=== PATIENT | female | born 1955 | race American Indian/Alaskan Native ===

== ENCOUNTER 2018-06-15 09:45 | Emergency (ER) | payer MEDICARE ==
[2018-06-15 09:52] VITALS: BP 145/83
[2018-06-15] MEDS ORDERED: NORCO 5/325 PO ONE (11:45)
[2018-06-15] MEDS ORDERED: TORADOL IM ONE (11:45)
[2018-06-15] MEDS ORDERED: FLEXERIL PO ONE (11:48)
--- NOTE | 2018-06-15 12:04 | Emergency Department Report ---
HPI - General Chief Complaint: Back Pain/Injury Time Seen by Provider: 06/15/18 11:11 - HPI HPI: 63-year-old -Irish female presents to the emergency department with a complaint of low back pain that has been going on since waking up yesterday mo rning. She denies any fall, trauma or any inciting event including lifting any heavy objects. She denies any numbness or paresthesias, problems with bowel or bladder, or any other neurological deficits. Other than being deaf, the patient denies any past medical history. She tried some Motrin for her symptoms without any relief. The pain worsens with ambulation, sitting down, or certain moveme nts. The patient's daughter is here translating using sign language. ED Past Medical Hx - Past Medical History Previous Medical History?: No Additional medical history: deaf - Surgical History Past Surgical History?: Yes Additional Surgical History: hysterectomy - Social History Smoking Status: Never Smoker Substance Use Type: None - Medications Home Medications: Home Medications Medication Instructions Recorded Confirmed Last Taken Type Ibuprofen [Motrin] 600 mg PO Q8H PRN #30 tablet 11/19/12 Unknown Rx cephALEXin [Keflex] 500 mg PO Q6H #40 capsule 11/19/12 Unknown Rx Cyclobenzaprine [Flexeril] 10 mg PO TID PRN #12 tablet 06/15/18 Unknown Rx Ibuprofen 800 mg PO Q8H PRN #20 tablet 06/15/18 Unknown Rx ED Review of Systems ROS: Stated complaint: LOWER BACK PAIN Other details as noted in HPI Comment: All other systems reviewed and negative Constitutional: denies: chills, fever Eyes: denies: eye pain, vision change ENT: denies: ear pain, throat pain Respiratory: denies: cough, shortness of breath Cardiovascular: denies: chest pain, palpitations Gastrointestinal: denies: abdominal pain, vomiting Genitourinary: denies: dysuria, discharge Musculoskeletal: back pain. denies: arthralgia Skin: denies: rash, lesions Neurological: denies: numbness, paresthesias Physical Exam - Physical Exam Vital Signs: Vital Signs 06/15/18 09:50 Temperature 98.4 F Pulse Rate 88 Respiratory 18 Rate Blood Pressure 145/83 O2 Sat by Pulse 100 Oximetry Physical Exam: GENERAL: The patient is well-developed well-nourished. HEENT: Normocephalic. Atraumatic. Patient has moist mucous membranes. EYES: Extraocular motions are intact. Pupils are equal and reactive to light bilaterally. NECK: Supple. Trachea is midline. CHEST/LUNGS: Clear to auscultation. There is no respiratory distress noted. HEART/CARDIOVASCULAR: Regular. There is no tachycardia. There is no obvious murmur. ABDOMEN: There is no abdominal distention. SKIN: Skin is warm and dry. NEURO: The patient is awake, alert, and oriented. The patient is cooperative. The patient has no focal neurologic deficits. The patient has normal speech. MUSCULOSKELETAL: There is no tenderness or deformity. There is no limitation range of motion. There is no evidence of acute injury. BACK: There is some reproducible lower lumbar midline and bilateral paraspinal tenderness to palpation but no step-off or deformity. ED Course Vital Signs 06/15/18 09:50 Temperature 98.4 F Pulse Rate 88 Respiratory 18 Rate Blood Pressure 145/83 O2 Sat by Pulse 100 Oximetry ED Medical Decision Making - Radiology Data Radiology results: image reviewed interpreted by me: X-ray of the lumbar spine does not show any fracture, subluxation, or any acute process. - Medical Decision Making Patient presents with some low back pain over the past 1-2 days that was atraumatic in nature. X-ray shows some signs of osteopenia and arthropathy but no fracture or subluxation or any acute process. She was given an anti- inflammatory and muscle relaxer. Urinalysis was unremarkable for urinary tract infection or hematuria. Vital signs stable throughout her ED course. On reevaluation she is feeling improved. Patient was able to ambulate while in the emergency department and appears stable. She will return home with a presc ription for the same medications as well as a referral for an orthopedist. She appears low suspicion for any of the emergent condition such as cauda equina, epidural abscess or cord compression syndrome. She will return to the ER with any worsening of her symptoms or any acute distress. - Differential Diagnosis lumbar strain/sprain, muscle spasm, UTI Critical Care Time: No Critical care attestation.: If time is entered above; I have spent that time in minutes in the direct care of this critically ill patient, excluding procedure time. ED Disposition Clinical Impression: Low back pain Qualifiers: Chronicity: acute Back pain laterality: bilateral Sciatica presence: without sciatica Qualified Code(s): M54.5 - Low back pain Disposition: DC-01 TO HOME OR SELFCARE Is pt being admited?: No Condition: Stable Instructions: Acute Low Back Pain (ED) Additional Instructions: Please follow-up with your primary care physician in the next few days. I am getting a referral for a local orthopedic group, [facility], to follow-up regarding your back pains. Return to the emergency Department with any worsening of your symptoms or any acute distress. You have been prescribed a medication that can be sedating. Therefore, this medication cannot be taken prior to driving, working, being responsible for children, and cannot be mixed with alcohol of any quantity. Prescriptions: Cyclobenzaprine [Flexeril] 10 mg PO TID PRN #12 tablet PRN Reason: Muscle Spasm Ibuprofen 800 mg PO Q8H PRN #20 tablet PRN Reason: Pain , Severe (7-10) Referrals: [facility] [Provider Group] - 2-3 Days Forms: Accompanied Note Time of Disposition: 13:57
--- NOTE | 2018-06-15 12:27 | XRay Report ---
AP AND LATERAL LUMBOSACRAL SPINE: History: Low back pain. The vertebral bodies are well mineralized and normal in alignment and vertebral height with well preserved interspace distances. Minimal diffuse facet arthropathy is identified. No evidence for fracture or bone lesion. Mild osteopenia is suspected. IMPRESSION: Mild diffuse facet arthropathy. Mild osteopenia.
[2018-06-15 13:35] LABS: Bilirubin,Urine NEG (Negative); Blood,Urine SM (Negative); Color,Urine Yellow (Yellow); Hyaline Casts,Urine 1 /LPF; Mucus,Urine FEW /HPF; Protein,Urine <15 mg/dL mg/dL (Negative); Urobilinogen,Urine < 2.0 mg/dL (<2.0)
== END 2018-06-15 14:03 | disposition home or self-care (01) ==
LOC: ED 09:45
DX: M54.5 Low back pain (principal); Z90.710 Acquired absence of both cervix and uterus
CPT/HCPCS: 72100; 81001; 96372; 99284; J1885